=== PATIENT | female | born 1955 | race Native Hawaiian/Other Pacific Islander ===

== ENCOUNTER 2018-08-24 12:51 | Outpatient (CLI) | payer OTHER | END 2018-08-24 20:08 | disposition home or self-care (01) | LOC: CT 12:51 | DX: N83.201 Unspecified ovarian cyst, right side (principal); D25.9 Leiomyoma of uterus, unspecified; Z12.4 Encounter for screening for malignant neoplasm of cervix | CPT/HCPCS: Q9963 ==